=== PATIENT | male | born 1975 | race Caucasian/White ===

== ENCOUNTER 2022-06-06 12:30 | Outpatient (CLI) | payer OTHER ==
--- NOTE | 2022-06-06 20:45 | MRI Report ---
PROCEDURE: KNEE WO - LT INDICATIONS: KNEE PAIN TECHNIQUE: Noncontrast sagittal PD fast spin echo and T2 fast spin echo with fat saturation, sagittal 3-D gradie nt sequence with fat saturation; coronal T1 spin echo and PD fast spin echo with fat saturation, and axial PD fast spin echo with fat saturation through the knee. COMPARISON: None. FINDINGS: Image quality: Excellent. Menisci: The medial and lateral menisci demonstrate normal morphology and internal signal. The meni scal root ligaments appear intact. Cruciate ligaments: Thickened distal anterior cruciate ligament with intrasubstance T2 hyperintense s ignal is seen suggestive of low-grade partial-thickness tear. PCL is intact. Medial structures: Mildly thickened proximal MCL at its femoral insertion is seen.. The posterior ob lique ligament, semimembranosus tendon insertions, and oblique popliteal ligament, and meniscocapsula r junction appear intact. Visualized portions of the pes anserinus tendons appear normal. No abnorm al bursal fluid. Lateral structures: The lateral collateral ligament, long and short heads of the biceps femoris tend on appear intact. The popliteus tendon appears normal; the popliteofibular ligament appears intact. Iliotibial band appears normal. Anterior structures: The quadriceps and patellar tendons appear intact. Patellar alignment is martha l. No femoral trochlear dysplasia or ventral trochlear prominence. No edema in the infrapatellar fa t pad. Bones and cartilage: Mild edema involving lateral periphery of patella and adjacent lateral femoral c ondyle. No discrete fracture line. The cartilage of the medial and lateral femorotibial compartments, as well as the patellofemoral compartment, appears normal in thickness. Joint space: There is small knee joint fluid. No Jorge's cyst. Normal appearing synovial plicae ar e incidentally noted. IMPRESSION: 1. Suggestion of low-grade sprain/intrasubstance partial thickness tear involving distal anterior cru ciate ligament at its tibial insertion. No ACL rupture. PCL is intact. 2. Very low-grade proximal MCL sprain. 3. No evidence of focal meniscal tear. 4. Mild bony contusion involving lateral periphery of patella and lateral femoral condyle. No fractur e or dislocation. Articulating cartilages are intact. Small joint effusion, no gross loose bodies. Reviewed by: Lalo Edwards MD on 06/06/2022 8:44 PM PDT Approved by: Lalo Edwards MD on 06/06/2022 8:44 PM PDT Station ID: [id number]
== END 2022-06-06 12:31 | disposition home or self-care (01) ==
LOC: DI 12:30
DX: S83.412A Sprain of medial collateral ligament of left knee, initial encounter (principal); S80.02XA Contusion of left knee, initial encounter; M25.462 Effusion, left knee